=== PATIENT | female | born 2005 | race Two or more races ===

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

== ENCOUNTER 2024-03-06 16:33 | Outpatient (REF) | payer MEDICAID, SELFPAY ==
[2024-03-07 11:44] LABS: Bacterial Vaginosis PCR NEGATIVE (Negative); Candida Group PCR DETECTED (Not Detect); Candida glab krusei PCR NOT DETECTED (Not Detect); Trichomonas vaginalis PCR NOT DETECTED (Not Detect)
[2024-03-07 14:02] LABS: CT PCR NOT DETECTED (Not Detect.); NG PCR NOT DETECTED (Not Detect.)
== END 2024-03-06 16:34 | disposition home or self-care (01) ==
LOC: HO.HHCLNP 16:33
PROVIDERS: Visit Provider Nurse Practitioner Family
DX: N76.0 Acute vaginitis (principal); R30.0 Dysuria; N30.01 Acute cystitis with hematuria
CPT/HCPCS: 0352U; 87086; 87088; 87186; 87491; 87591

== ENCOUNTER 2024-04-04 16:25 | Outpatient (REF) | payer MEDICAID, SELFPAY ==
[2024-04-05 13:51] LABS: Bacterial Vaginosis PCR NEGATIVE (Negative); Candida Group PCR NOT DETECTED (Not Detect); Candida glab krusei PCR NOT DETECTED (Not Detect); Trichomonas vaginalis PCR NOT DETECTED (Not Detect)
[2024-04-05 14:21] LABS: CT PCR NOT DETECTED (Not Detect.); NG PCR NOT DETECTED (Not Detect.)
== END 2024-04-04 16:26 | disposition home or self-care (01) ==
LOC: HO.LNP 16:25
PROVIDERS: Pediatrics; Visit Provider Nurse Practitioner Family
DX: R30.0 Dysuria (principal); N39.0 Urinary tract infection, site not specified; Z11.3 Encounter for screening for infections with a predominantly sexual mode of transmission; B96.20 Unspecified Escherichia coli [E. coli] as the cause of diseases classified elsewhere
CPT/HCPCS: 81515; 87086; 87088; 87186; 87491; 87591

== ENCOUNTER 2024-08-10 18:09 | Outpatient (REF) | payer MEDICAID, SELFPAY ==
[2024-08-11 11:30] LABS: Bacterial Vaginosis PCR POSITIVE (Negative); Candida Group PCR DETECTED (Not Detect); Candida glab krusei PCR NOT DETECTED (Not Detect); Trichomonas vaginalis PCR NOT DETECTED (Not Detect)
== END 2024-08-10 18:10 | disposition home or self-care (01) ==
LOC: HO.LNP 18:09
PROVIDERS: Visit Provider Nurse Practitioner
DX: N89.8 Other specified noninflammatory disorders of vagina (principal); N30.01 Acute cystitis with hematuria
CPT/HCPCS: 81515; 87086; 87088; 87186

== ENCOUNTER 2024-09-06 20:12 | Outpatient (REF) | payer MEDICAID, SELFPAY ==
[2024-09-06 22:21] LABS: Bacterial Vaginosis PCR NEGATIVE (Negative); Candida Group PCR NOT DETECTED (Not Detect); Candida glab krusei PCR NOT DETECTED (Not Detect); Trichomonas vaginalis PCR NOT DETECTED (Not Detect)
[2024-09-06 22:50] LABS: CT PCR DETECTED (Not Detect.); NG PCR NOT DETECTED (Not Detect.)
== END 2024-09-06 20:13 | disposition home or self-care (01) ==
LOC: HO.HHCLNP 20:12
PROVIDERS: Visit Provider Nurse Practitioner
DX: Z20.2 Contact with and (suspected) exposure to infections with a predominantly sexual mode of transmission (principal); N89.8 Other specified noninflammatory disorders of vagina
CPT/HCPCS: 81515; 87491; 87591

== ENCOUNTER 2024-10-11 10:15 | Outpatient (REF) | payer MEDICAID, SELFPAY ==
[2024-10-11 20:11] LABS: Bacterial Vaginosis PCR NEGATIVE (Negative); Candida Group PCR DETECTED (Not Detect); Candida glab krusei PCR NOT DETECTED (Not Detect); Trichomonas vaginalis PCR NOT DETECTED (Not Detect)
[2024-10-11 21:04] LABS: CT PCR NOT DETECTED (Not Detect.); NG PCR NOT DETECTED (Not Detect.)
== END 2024-10-11 10:16 | disposition home or self-care (01) ==
LOC: HO.LNP 10:15
PROVIDERS: Visit Provider Nurse Practitioner Family
DX: R10.2 Pelvic and perineal pain (principal); R30.0 Dysuria
CPT/HCPCS: 81515; 87086; 87491; 87591

== ENCOUNTER 2024-11-14 13:35 | Outpatient (REF) | payer MEDICAID, SELFPAY ==
--- OUTSIDE RECORDS SUMMARY | 2024-11-14 15:45 | XMS_ITS | Encounter Summary ---
Author Organization [employer] Address [address] [facility] 7t [place] [address] Care Team Providers Care Wire Web Worker Name Role Phone Marisol Freitas NP Primary Care Provider [phone] Reason for Visit * Reason Comments sick onsite Encounter Details Date Type Department Care Team (Late st Contact Info) Description 11/14/2024 3:45 PM EDT Office Visit [facility] [address] [place] [address] Marisol Freitas NP [address] [place] [address] Irregular menses (Primary Dx) Social History Tobacco Use Types Packs/Day Years Used Date Smoking Tobacco: Never Smokeless Tobacco: Never Alcohol Use Standard Drinks/Week Comments Never 0 (1 standard drink = 0.6 oz pur e alcohol) Depression Answer Date Recorded Patient Health Questionnaire-9 Score 0 03/06/2024 Patient Health Questionnaire-9 Score 0 03/06/2024 Last PHQ-9: Questionnaire Data Not on file 1 05/07/2023 Housing Stability Answer Date Recorded What is your housing situation today? I have zahraa bateman 10/03/[address] you li ve. Do you have problems with any of the following? None of the above 10/03/2024 Food Insecurity Answer Date Recorded Within the past 12 months, y ou worried that your food would run out before you got money to buy more: Never True 03/06/2024 Within the past 12 months,th e food you bought just didn't last and you didn't have enough money to get more: Never True Transportation Answer Date Recorded In the past 12 months, has l ack of transportation kept you from medical appts, meetings, work or from getting things needed for daily living? No 03/06/2024 Utilities Answer Date Recorded In the past 12 months, has t he electric, gas, oil or water company threatened to shut off services in your home? No 03/06/2024 Depression Answer Date Recorded Patient Health Questionnaire-2 Score 0 03/06/2024 Internet Access Answer Date Recorded Internet Access Q1 Yes 03/06/2024 Internet Access Q2 Not on file 03/06/2024 Comments No Sex and Gender Information Value Date Recorded Sex Assigned at Female 01/19/2022 10:18 AM EDT Legal Sex Female 10:18 AM EDT Gender Identity Female 01/19/2022 10:18 AM EDT Sexual Orientation Straight 01/19/2022 10 :18 AM EDT documented as of this encounter Last Filed Vital Signs Vital Sign Reading Time Taken Comments Blood Pressure 100/78 11/14/2024 3:54 PM EDT Pulse 78 11/14/2024 3:54 PM EDT Temperature 36.8 C (98.3 F) 11/14/2024 3:54 PM EDT Respiratory Rate 19 11/14/2024 3:54 PM EDT Oxygen Saturation 96% 11/14/2024 3:54 PM EDT Inhaled Oxygen Concentration - - Weight 73.5 kg (162 lb) 11/14/2024 3:54 PM EDT Height 170.2 cm (5' 7 ) 11/14/2024 3:54 PM EDT Body Mass Index 25.37 11/14/2024 3:54 PM EDT documented in this encounter Plan of Treatment Scheduled Orders Name Type Priority Associated Diagnoses Orde r Schedule Chlamydia/N. Gonorrhoeae, PCR, Urine Lab Routine Irregular menses Ordered: 11/14/2024 TSH W/Reflex to FT4 Lab Routine Irregular menses Expected: 11/14/2024 (Approximate), Expires: 11/14/2025 documented as of this encounter Procedures Procedure Name Priority Date/Time Associated Diagnosis Comments POCT , URINE Routine 11/14/2024 4:31 PM EDT Irregular menses documented in this encounter Results * POCT Urine (11/14/2024 4:31 PM EDT) Preg Test, Ur Negative Negative, Indeterminate, None Detected, Invalid, Specimen unsatisfactory for evaluation, Weakly Positive, 2+ QC Media Lot # [id number] Lot# Expiration Date [id number] Urine 11/14/2024 4:31 PM EDT Marisol Freitas NP POINT OF CARE TEST ENTER/EDIT OR DERABLES Final Result documented in this encounter Visit Diagnoses Diagnosis Irregular menses- Primary Irregular menstrual cycle documented in this encounter Additional Health Concerns Assessment Noted Time PHQ-9 Depression Total Score: 0 03/06/20 24 10:00 AM EST documented as of this encounter Care Teams Wire Web Worker Relationship Specialty Start Date End Date Marisol Freitas NP [address] [place] [phone] PCP - General Family Medicine 12/08/23 documented as of this encounter
--- OUTSIDE RECORDS SUMMARY | 2024-11-15 14:22 | XMS_ITS | Encounter Summary ---
Author Organization [employer] Address [address] 7[address] [place] [address] Care Team Providers Care Maritime Pilot Name Role Phone Zena Marisol CHOI Primary Care Provider [phone] Encounter Details Date Type Department Care Team (Latest Contact Info) Description 11/14/2024 Travel Social History Tobacco Use Types Packs/Day Years [...] AM EDT documented as of this encounter Plan of Treatment Not on file documented as of this encounter Visit Diagnoses Not on filedocumented in this encounter Additional Health Concerns Assessment Noted Time PHQ-9 Depression Total Score: 0 03/06/20 10:00 AM EST documented as of this encounter Care Teams Maritime Pilot Relationship Specialty Start Date End Date Marisol Freitas NP [address] [place] [address] PCP - General Family Medicine 12/08/23 documented as of this encounter
--- OUTSIDE RECORDS SUMMARY | 2024-11-15 14:22 | XMS_ITS | Clinical Summary ---
Author Organization [employer] Address [address] [facility] 7t [place] [address] Care Team Providers Care Inside Barrel Lathe Operator Name Role Phone Marisol Freitas NP Primary Care Provider [phone] Allergies Active Allergy Reactions Criticality Noted Date Comments Pollen Extract Runny nose 11/24/2022 Medications ulipristal (Nancy) 30 mg tablet Take one tablet by mouth up to five days after sex. Do not use more than once per menstrual cycle. If repeat dose is needed in same cycle, please contact prescriber. 1 tablet 11 4 Active fluconazole (Diflucan) 150 MG tablet Take 1 tablet (150 mg) by mouth 1 (one) time per week for 14 days. 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 Acute vaginitis 03/06/2024 Acute cystitis with hematuria 03/06/2024 Impacted cerumen of left ear 03/06/2024 Overweight, pediatric, BMI 85.0-94.9 percentile for age 0204/30/2023 Symptoms of depression 05/17/2020 Encounters Date Type Department Care Team Description 11/14/2024 3:45 PM EDT Office Visit [address] [address] Marisol Freitas NP Irregular menses (Primary Dx) 11/14/2024 Travel 11/14/[address] [address] Marisol Freitas NP Nurse Triage 10/12/2024 Orders Only [address] [address] Marisol Freitas NP Olivia infection (Primary Dx) 10/11/2024 9:30 AM EDT Office Visit [address] [address] Marisol Freitas NP Pelvic pain (Primary Dx); Dysuria 10/11/2024 Travel 10/10/[address] [address] Deyvi Lopes [place] CHARTPREP 10/03/2024 Patient Outreach [facility] [address] [place], [place] [phone] Marisol Freitas NP Pre-visit Planning (SDOH negative. Tobacco screening negative) 09/08/2024 Results Follow-Up [address] [address] Jennifer Soliz NP Chlamydia/N. Gonorrhoeae RNA, TMA, Vagina, POCT urinalysis dipstick manually resulted, POCT , urine manually resulted 09/06/2024 6:20 PM EDT Office Visit [facility] [address] [place] [address] Jennifer Soliz NP Vaginal symptom (Primary Dx); Encounter for assessment of sexually transmitted infection exposure 09/06/2024 Orders Only [facility] MED[facility]INE [address] [place] [phone] Jennifer Soliz NP 09/06/2024 Telephone [facility] [address] [place], [place] [phone] Jennifer Soliz NP from Last 3 Months Immunizations Immunization Administration Dates Next Due DTaP 11/04/2009, 7,01/07/2005,09/29,2004 HPV 9-Valent 08/18/2016,01/17/2016 Hep A, ped/adol, 2 dose 08/12/2007,07/21/2006 Hep B, Adolescent or Pediatric 5,2004,2004,05/02 Hep B, adult 10/15/2023,04/30/2023 Hib ([facility]) 07/21/2006, 5,2004,07/02 IPV 11/04/2009, 5,2004,07/02 Influenza injectable quadriv alent preservative free 01/12/2022,04/11/2021,05/17/2020,01/16 Influenza, seasonal, injecta ble, preservative free 04/12/2009,01/06/2006 MMR 11/04/2009,07/21/2006 MMRV 07/21/2006 Meningococcal MCV4P ACYW-135 05/17/2020,01/17/20 Pneumococcal Conjugate PCV 7 07/21/2006, 01/07/2005,2004,07/02 Tdap 01/17/2016 Varicella 11/04/2009 Social History Tobacco Use Types Packs/Day Years Used Date Smoking Tobacco: Never Smokeless Tobacco: Never Tobacco Cessation:Counseling Given: Not Answered Alcohol Use Standard Drinks/Week Comments Never 0 [...] Orientation Straight 01/19/2022 10 :18 AM EDT Last Filed Vital Signs Vital Sign Reading [...] Mass Index 25.37 11/14/2024 3:54 PM EDT Plan of Treatment Health Maintenance Due Date Last Done Comments Meningococcal B Vaccine (1 of 2 - Standard) 2020 COVID-19 Vaccine (4 - season) 2023 01/12/2022, 06/18/2021, 05/23/2021 Influenza Vaccine (#1) 2024 , 01/12/2022, 04/11/2021, Additional history exists Depression Screening 03/06/2025 03/06/2024, 03/06/20 24 Family Planning (PISQ) 04/11/2025 04/11/2024 SDOH Screening 10/03/2025 10/03/2024 Alcohol/Substance Use Screening 10/11/2025 10/11/2024 Chlamydia and Gonorrhea Screening 10/11/2025 10/11/2024, 09/06/2024, 04/04/2024, Additional history exists Disability Screening 10/11/2025 10/11/2024 Tobacco Screening 11/14/2025 11/14/2024 DTaP/Tdap/Td Vaccines (7 - Td or Tdap) 01/16/2026 01/17/2016, 11/04/2009, 07/21/2006, Additional history exists Lipid Panel 07/20/2028 07/21/2023 Zoster Vaccines (1 of 2) 2054 RSV Patients and Patients Aged 60 years or older (1 - 1-dose 75+ series) 2079 HIB Vaccines Completed 07/21/2006, 12/20, 2004, Additional history exists Pneumococcal Vaccine: Pediatrics (0 to 5 Years) and At-Risk Patients (6 to 49) Years Aged Out 07/21/2006, 01/07/2005, 2004, Additional history exists No longer eligible based on patient's age to complete this topic Hepatitis A Vaccines Completed 08/12/2007, 07/22/19 07 IPV Vaccines Completed 11/04/2009, 12/20, 2004, Additional history exists HPV Vaccines Completed 08/18/2016, 01/17/2016 Meningococcal Vaccine Completed 05/17/2020, 016 HIV Screening Completed 07/21/2023 Hepatitis B Vaccines Completed 10/15/2023, 04/30/2023, 01/07/2005, Additional history exists Hepatitis C Screening Completed 10/15/2023 RSV under 20 months Aged Out No longe r eligible based on patient's age to complete this topic Rotavirus Vaccines Aged Out No longer eligible based on patient's age to complete this topic Procedures Procedure Name Priority Date/Time Associated Diagnosis Comments POCT , URINE Routine 11/14/2024 4:31 PM EDT Irregular menses CULTURE, URINE, ROUTINE Routine 10/11/2024 10:15 AM EDT Dysuria BACTERIAL VAGINOSIS PANEL Routine 10/11/2024 10:15 AM EDT Pelvic pain CHLAMYDIA/N. GONORRHOEAE RNA, TMA, UROGENITAL Routine 10/11/2024 10:15 AM EDT Pelvic pain POCT , URINE Routine 09/06/2024 7:17 PM EDT Vaginal symptom POCT URINALYSIS DIPSTICK Routine 09/06/2024 7:01 PM EDT Vaginal symptom BACTERIAL VAGINOSIS PANEL Routine 09/06/2024 6:58 PM EDT CHLAMYDIA/N. GONORRHOEAE RNA, TMA, UROGENITAL Routine 09/06/2024 6:48 PM EDT Vaginal symptom Encounter for assessment of sexually transmitted infection exposure HEPATITIS C AB W/REFL TO HCV RNA, QN, PCR Routine 10/15/2023 9:42 AM EDT Unprotected sexual intercourse HIV 1/2 ANTIGEN/ANTIBODY, FOURTH GENERATION W/RFL Routine 07/21/2023 9:21 AM EDT Hepatitis B non-converter (post-vaccination) LIPID PANEL, STANDARD Routine 07/21/2023 9:21 AM EDT Overweight, pediatric, BMI 85.0-94.9 percentile for age from Last 3 Months or Most Recently Relevant to Health Maintenance Results * POCT Urine (11/14/2024 4:31 PM EDT) Only the most recent of2 resultswithin the time period is included. Preg Test, Ur Negative Negative, Indeterminate, None Detected, Invalid, Specimen unsatisfactory for evaluation, Weakly Positive, 2+ QC Media Lot # [id number] Lot# Expiration Date [id number] Urine 11/14/2024 4:31 PM EDT Marisol Freitas NP POINT OF CARE TEST ENTER/EDIT OR DERABLES Final Result * (ABNORMAL) Bacterial Vaginosis Panel (10/11/2024 10:15 AM EDT) Only the most recent of2 resultswithin the time period is included. TRICHOMONAS VAGINALIS DETECTION BY PCR NOT DETECTED Not Detect [facility] BACTERIAL VAGINOSIS DETECTION BY PCR NEGATIVE Negative [facility] Comment:The BV organism targ ets of the Xpert Xpress MVP test can becommensal in women; Xpert Xpress MVP positive results forbacterial vaginosis should be considered in conjunction withother clinical and patient information to determine thedisease status. Organisms that are not detected by the XpertXpress MVP test have also been reported to be associatedwith BV and aerobic vaginitis.The Xpert Xpress MVP test performance has not been evaluatedin patients under the age of 14. OLIVIA GROUP DETECTION BY PCR DETECTED(A) Not Detect [facility] Olivia glab krusei PCR NOT DETECTED Not Detect [facility] Swab Vaginal structure / Unknown 10/11/2024 10:15 AM EDT 10/11/2024 5:34 PM EDT us Marisol Freitas NP LAB MICROBIOLOGY - GENERAL ORDER MEL Final Result [facility] [address] [place] [phone] * Chlamydia/N. Gonorrhoeae RNA, TMA, Vaginal (10/11/2024 10:15 AM EDT) Only the most recent of2 resultswithin the time period is included. CT PCR NOT DETECTED Not Detect. [facility] Comment:A not detected test result does not exclude the possibilityof infection because test results can be affected byimproper specimen collection, concurrent antibiotic therapy,or the number of organisms in the specimen which may bebelow the sensitivity of the test. As with many diagnostictests, results from the Xpert CT/NG assay should beinterpreted in conjunction with other laboratory andclinical data available to the clinician.Xpert CT/NG performance has not been evaluated in patientsless than 14 years of age. The assay should not be used forthe evaluationof suspected sexual abuse or for other medico-legalindications. Additional testing is recommended in anycircumstance when false positive or false negative resultscould lead to adverse medical, social or psychologicalconsequences. NG PCR NOT DETECTED Not Detect. [facility] Comment:A not detected test result does not exclude the possibilityof infection because test results can be affected byimproper specimen collection, concurrent antibiotic therapy,or the number of organisms in the specimen which may bebelow the sensitivity of the test. As with many diagnostictests, results from the Xpert CT/NG assay should beinterpreted in conjunction with other laboratory andclinical data available to the clinician.Xpert CT/NG performance has not been evaluated in patientsless than 14 years of age. The assay should not be used forthe evaluationof suspected sexual abuse or for other medico-legalindications. Additional testing is recommended in anycircumstance when false positive or false negative resultscould lead to adverse medical, social or psychologicalconsequences. Swab Vaginal structure / Unknown 10/11/2024 10:15 AM EDT 10/11/2024 5:34 PM EDT us Marisol Freitas NP LAB MICROBIOLOGY - GENERAL ORDER MEL Final Result [facility] [address] [place] [phone] * Culture, Urine, Routine (10/11/2024 10:15 AM EDT) Urine Urine specimen obtained by clean catch procedure / Unknown 10/11/2024 10:15 AM EDT 10/11/2024 5:34 PM EDT Comment:UACC Narrative [facility] - 10/13/2024 12:04 PM EDT Urine Culture Report Result Urine Culture > 100,000 cfu/ml Urine Culture Mixed bacterial vidhya characteristic of Urine Culture urogenital contamination. Specimen Source: Urine clean catch Marisol Freitas PRIZE FIGHTER LAB MICROBIOLOGY - GENERAL ORDER MEL Final Result [facility] [address] [place] [phone] * POCT urinalysis dipstick manually resulted (09/06/2024 7:01 PM EDT) Color, UA Yellow Clarity, UA Clear Glucose, UA Negative Bilirubin, UA Negative Ketones, UA Negative Spec Grav, UA 1.020 Blood, UA Negative Negative, None Detected pH, UA 6.5 Protein, UA Negative Urobilinogen, UA 0.2 Leukocytes, UA Negative Negative, Rare, Trace Nitrite, UA Negative Negative, None Detected Appearance, UA clear QC Media Lot # [id number] Lot# Expiration Date [id number] Urine 09/06/2024 7:01 PM EDT Jennifer Soliz [employer]IZE [employer]TER POINT OF CARE TEST ENTER/EDIT O RDERABLES Final Result * Hepatitis C Antibody with Reflex to HCV, RNA, Quantitative, Real-Time PCR (10/15/2023 9:42 AM EDT) Hepatitis C Antibody Nonreactive Nonreactive [facility] Comment:Antibodies to HCV no t detected; does not exclude early acuteHCV infection. Blood Venous blood specimen / Unknown 10/15/2023 9:42 AM EDT 10/15/2023 11:35 AM EDT us Savi Loyola MD LAB BLOOD ORDERABLES Violet l Result Performing Organization Address [facility] Co de Phone Number [facility] [address] [place] [phone] * HIV-1/1 Ag/Ab (07/21/2023 9:21 AM EDT) HIV AB/AG Nonreactive Nonreactive [facility] Comment:HIV-1 p24 Ag and/or HIV-1/HIV-2 Ab not detected.A test result that is nonreactive does not exclude thepossibility of exposure to or infection with HIV-1 and/orHIV-2. Nonreactive results in this assay for individualswith prior exposure to HIV-1 and/or HIV-2 may be due toantigen and antibody levels that are below the limit ofdetection of this assay.The [employer] HIV Ag/Ab Combo assay result andsupplemental assay results should be interpreted inconjunction with the patient's clinical presentation,history and other laboratory results. If the results areinconsistent with clinical evidence, additional testing issuggested to confirm the result. Blood Venous blood specimen / Unknown 07/21/2023 9:21 AM EDT 07/21/2023 11:26 AM EDT us Celina Smith DO LAB BLOOD ORDERABLES Final Re sult Performing Organization Address [facility] Co de Phone Number [facility] [address] [place] [phone] * Lipid Panel (07/21/2023 9:21 AM EDT) Triglycerides 31 <150 mg/dL [facility] Comment:Desirable Triglyceri de: less than 90 mg/dLBorderline High Triglyceride: 90-129 mg/dLHigh Triglyceride: greater than 130 mg/dL Cholesterol 136 <200 mg/dL [facility] Comment:Desirable Cholestero l: less than 170 mg/dLBorderline High Cholesterol: 170-199 mg/dLHigh Cholesterol: greater than 200 mg/dL LDL Cholesterol Calculated 85 <100 mg/dL [facility] Comment:Desirable LDL: less than 110 mg/dLBorderline LDL: 110-129 mg/dLHigh LDL: greater than or equal to 130 mg/dL HDL Cholesterol 45 >40 mg/dL [facility] Comment:Desirable HDL: great er than 45 mg/dLBorderline HDL: 40-45 mg/dLLow HDL: less than 40 mg/dL Note: This HDL assay may give artificially low results in patients with liver disease. Blood Venous blood specimen / Unknown 07/21/2023 9:21 AM EDT 07/21/2023 11:26 AM EDT us Celina Smith DO LAB BLOOD ORDERABLES Final Re sult [facility] [address] [place] [phone] from Last 3 Months or Most Recently Relevant to Health Maintenance Insurance [facility] C3 Care Teams Inside Barrel Lathe Operator Relationship Specialty Start Date End Date Marisol Freitas NP [address] [place] [phone] PCP - General Family Medicine 12/08/23
--- OUTSIDE RECORDS SUMMARY | 2024-11-15 14:22 | XMS_ITS | Encounter Summary ---
Author Organization [employer] Address [address] [facility] [address] [place] [address] Care Team Providers Care Sap Business Intelligence Consultant Name Role Phone Marisol Freitas NP Primary Care Provider [phone] Reason for Visit * Reason Onset Date Comments Nurse Triage 11/14/2024 Encounter Details Date Type Department Care Team (Late st Contact Info) Description 11/14/2024 Telephone [facility] [address] [place] [phone] Marisol Freitas NP [address] [place] [address] Nurse Triage Social History Tobacco Use Types Packs/Day Years [...] AM EDT documented as of this encounter Miscellaneous Notes * Telephone Encounter - Shauna Doyle RN - 11/14/2024 9:22 AM EDT Call returned to Yocasta Nesbitt to triage below at [phone]. Reports having LMP on 11/02/24, lasted 4-5 days, flow was normal. Pt this Wednesday had heavy bleeding x 1 day. Pt passed a blood clot on Wednesday. Pt having spotting between maroon and pink color x 2 days. Pt is not on a method of BC. Pt endorses pelvic cramping and mild nausea. Not saturating a pad. Pt wants to be seen. Agrees to PCP appt today for exam. Protocol Used: Vaginal Bleeding - Abnormal (Adult) Protocol-Based Disposition: See in Office or Video Visit within 2 Weeks Future Appointments Date Time Provider Department Center 11/14/2024 3:45 PM Marisol Freitas NP MEDIC[facility] Insurance verified as active per Real Time Eligibility in [facility]. Positive Triage Question: * Menstrual cycle < 21 days OR > 35 days, and occurs more than two cycles (2 months) this past year * All higher-acuity triage questions were negative Care Advice Discussed: * Reassurance and Education - Normal Menses * Iron and Anemia * Reasons To Call Back - Severe abdomen pain or lightheadedness occurs - Bleeding worsens - You become worse * Telephone Encounter - Lisette Yovani Maki - 11/14/2024 9:07 AM EDT Symptoms: Menstrual Periods Absent or Missed, Nausea But No Vomiting, Vaginal Bleeding - Not Outcome: Schedule an urgent appointment (within 4 hours) or talk to a nurse or provider soon Reason: Started within the past 3 days The caller accepted this outcome. Contact pt at [phone] documented in this encounter Plan of Treatment Not on file documented as of this encounter Visit Diagnoses Not on filedocumented in this encounter Additional Health Concerns Assessment Noted Time PHQ-9 Depression Total Score: 0 03/06/20 10:00 AM EST documented as of this encounter Care Teams Sap Business Intelligence Consultant Relationship Specialty Start Date End Date Marisol Freitas NP [address] [place] [phone] PCP - General Family Medicine 12/08/23 documented as of this encounter
[2024-11-16 04:30] LABS: CT PCR Urine NOT DETECTED (Not Detect.); NG PCR Urine NOT DETECTED (Not Detect.)
== END 2024-11-14 13:36 | disposition home or self-care (01) ==
LOC: HO.HHCLNP 13:35
PROVIDERS: Visit Provider Nurse Practitioner Family
DX: N92.6 Irregular menstruation, unspecified (principal)
CPT/HCPCS: 87491; 87591

== ENCOUNTER 2025-01-22 13:04 | Outpatient (REF) | payer MEDICAID, SELFPAY ==
[2025-01-22 14:59] LABS: Bacterial Vaginosis PCR NEGATIVE (Negative); Candida Group PCR DETECTED (Not Detect); Candida glab krusei PCR NOT DETECTED (Not Detect); Trichomonas vaginalis PCR NOT DETECTED (Not Detect)
[2025-01-22 15:20] LABS: CT PCR Urine NOT DETECTED (Not Detect.); NG PCR Urine NOT DETECTED (Not Detect.)
== END 2025-01-22 13:05 | disposition home or self-care (01) ==
LOC: HO.HHCLNP 13:04
PROVIDERS: Visit Provider Nurse Practitioner Family
DX: N89.8 Other specified noninflammatory disorders of vagina (principal); A49.3 Mycoplasma infection, unspecified site; Z20.2 Contact with and (suspected) exposure to infections with a predominantly sexual mode of transmission
CPT/HCPCS: 81515; 87491; 87563; 87591